=== PATIENT | female | born 1960 | race Caucasian/White ===

== ENCOUNTER 2020-12-10 06:56 | Observation (INO) | payer BC ==
[~2020-12-10] VITALS: Ht 160 cm; Wt 90.0 kg
[2020-12-10] VITALS (10 sets, daily range): BP systolic 128–178; BP diastolic 59–95
[~2020-12-10 06:56] MED LIST: GELATIN SPONGE SIZE 100. ONE; IBUP-1027 PO; IV RINGERS,LACTATED 1000ML 1,000 ML IV SCH; KETOROLAC 60 MG/2 ML VIAL. ONE; LIDOCAINE 2% PF 5 ML VIAL. ONE; LISI10TA16 PO; MIDAZOLAM HCL/PF 2 MG/2 ML VIAL. ONE; MORPHINE SULFATE 2 MG/ML INJ. IVP PRN; MULT-445 PO; OXYC1TAB19 PO; PHENYLEPHRINE 10 MG/ML VIAL. ONE; PROCHLORPERAZINE 10 MG/2 ML VIAL. IVP PRN; PROPOFOL 10 MG/ML (20ML) VIAL. IV ONE; PROPOFOL 50 ML IV ONE; REMIFENTANIL 2 MG VIAL. IV ONE; ROCURONIUM 50 MG/5 ML VIAL. ONE; THROMBIN TOPICAL 20,000 UNIT SPRAY.SYRN KIT TP ONE; ceFAZolin SODIUM 1 GM in IV NORMAL SALINE 1000ML BAG 1,000 ML IRR ONE; fentaNYL PF VIAL 100 MCG/2 ML VIAL IVP PRN; fentaNYL PF VIAL 100 MCG/2 ML VIAL ONE
[2020-12-10] MEDS ORDERED: DEXAMETHASONE SOD PHOS 4 MG/ML VIAL ONE (07:24)
[2020-12-10] MEDS ORDERED: ONDANSETRON PF 4 MG/2 ML VIAL. ONE (07:24)
[2020-12-10] MEDS ORDERED: SEVOFLURANE > 120 MINUTES. IH ONE (07:24)
[2020-12-10] MEDS ORDERED: BUPIVACAINE-EPI 0.5%-1:200000 MPF 30 ML VIAL. INJ ONE (07:30)
[2020-12-10] MEDS ORDERED: BUPIVACAINE-EPI 0.5% 30 ML VIAL KIT. INJ ONE (07:45)
[2020-12-10] MEDS ORDERED: PROPOFOL 50 ML IV ONE (07:46)
--- NOTE | 2020-12-10 08:02 | PREOP HP ---
DATE OF SERVICE: 12/10/2020 HISTORY OF PRESENT ILLNESS: The patient was seen in the office. She is a pleasant 60-year-old who is having problems with her back pain and pain that radiates to her left leg. Most of the pain is in the left leg. The pain is in the posterolateral thigh and leg. She notes pain and numbness sensation in that distribution. The problem started in 06/2020. She said she was slowly improving and fell in October and became worse again. The pain was 10/10 in June and is now 4/10. Sitting aggravates her pain. Standing helps. She takes ibuprofen. She did undergo steroid injection which helped for about 2 months. She had a second epidural steroid injection recently which did only helped her slightly. She has done physical therapy since June which she says is helping with her back pain. MEDICATIONS: Ibuprofen, lisinopril. PAST MEDICAL HISTORY: Hypertension. PAST SURGICAL HISTORY: Hysterectomy, tubal ligation. FAMILY HISTORY: Diabetes, hypertension, heart disease. SOCIAL HISTORY: . Smokes 1 pack per day for 40 years. Employed as a teacher aide. ALLERGIES: LATEX. REVIEW OF SYSTEMS: A 12-point review of systems was performed and is noncontributory except that mentioned above. PHYSICAL EXAMINATION: GENERAL APPEARANCE: Alert, pleasant, and in no acute distress. HEENT: Head is normocephalic, atraumatic. SKIN: Warm and dry. MUSCULOSKELETAL: Lumbar paraspinal muscle bulk is normal, restricted range of motion of the lumbar spine, [id number] tenderness of the lower lumbar spine with palpation, normal range of motion of the lower extremities bilaterally. EXTREMITIES: No clubbing, cyanosis or edema. NEUROLOGIC: Alert and oriented x 3. Strength is 5/5 in the bilateral lower extremities except 4+/5 in the left dorsiflexion, sensory was intact to light touch in the bilateral lower extremities except for decreased lateral aspect of her left foot. Reflexes were 2+ and symmetric in the lower extremities bilaterally, negative straight leg raising, normal gait. IMAGING: I reviewed her lumbar MRI scan. She has moderate stenosis at L3-L4. At L4-L5, there is severe left lateral recess and foraminal narrowing. This is due both to disk bulging as well as marked bone and ligament hypertrophy. ASSESSMENT AND PLAN: I do not believe she is symptomatic related to the stenosis at L3-L4. At L4-L5, she has marked lumbar radiculopathy with weakness. I recommended microdecompressive surgery at this level. I spoke with her about the surgery and the risk and the expected postoperative course. She understands. She would like to go ahead. DAREK DR: Mohit TID: [id number] MTDJoy
[2020-12-10] MEDS ORDERED: HYDROmorphone 2 MG/ML VIAL ONE ×2 (08:42→11:11)
[2020-12-10] MEDS ORDERED: NEOSTIGMINE METHYLSULFATE 5 MG/5 ML SYRINGE. ONE (08:45)
[2020-12-10] MEDS: HYDROmorphone 2 MG/ML VIAL IVP PRN ×3 (11:14→12:04)
--- NOTE | 2020-12-10 11:14 | OP ---
DATE OF SURGERY: 12/10/2020 PREOPERATIVE DIAGNOSES: Herniated lumbar disc and lateral recess stenosis, L4-5, left. POSTOPERATIVE DIAGNOSES: Herniated lumbar disc and lateral recess stenosis, L4-5, left. OPERATIONS PERFORMED: Hemilaminotomy with microdecompression and microdiscectomy, L4-5, left. The operation was done with EMG monitoring, SSEP monitoring, fluoroscopy, microscopic dissection. SPECIMEN: Disc and decompression. SURGEON: Teodoro Green M.D. HOUSEHOLD COOK: ALLYN Bird, assisted with the surgery. She assisted with the exposure, the microdiscectomy, microdecompression as well as the closure. OPERATIVE INDICATIONS: The patient is a pleasant 60-year-old who developed intractable back and left leg pain. On imaging studies, she had a combination of hypertrophic ligament and facets as well as significant disc bulging and I recommended lumbar microsurgery at this level. I spoke about the surgery, the risks, the technique and expected postoperative course, and she wished me to go ahead. DESCRIPTION OF PROCEDURE: Following general endotracheal anesthesia, the patient was positioned prone on the Nagi table. Lumbar region prepped and draped in the standard fashion. RHEA hose and AV impulse boots were applied for DVT prophylaxis. The microscope was draped, fluoroscopy was draped and brought into the field. Monitoring was established. Ancef 2 grams given less than 1 hour prior to initiation of surgery. Using fluoroscopic guidance, an incision was made extending from mid L4 to mid L5, I dissected down through skin and subcutaneous tissue, placed a micro disk retractor, brought in the microscope confirming my position fluoroscopically and through the microscope, I burred down a generous hemilaminotomy. I then trimmed away thickened ligamentum flavum, exposing the dura and I did perform a generous partial foraminotomy. I retracted the root medially after removing the thickened ligamentum and there was significant disc bulging and I held the nerve medially with a micro nerve root retractor, incised the annulus and performed discectomy with pituitary rongeurs. As I worked, the entire region became very well decompressed. I explored carefully. Hemostasis was excellent. The root was very well decompressed. I irrigated copiously with antibiotic solution. I then removed the retractor, obtained hemostasis in the muscle, irrigated again and then I closed the wound in layers with absorbable suture and skin was closed with 4-0 subcuticular stitch. I was quite pleased with the surgery. MARIA GUADALUPE DR: Dale TID: [id number] MTDJoy
[2020-12-10] MEDS ORDERED: NALOXONE 0.4 MG/ML VIAL. IV PRN (11:30)
[2020-12-10] MEDS ORDERED: diphenhydrAMINE HCL 25 MG CAPSULE PO PRN (11:30)
[2020-12-10] MEDS ORDERED: MAGNESIUM HYDROXIDE 2,400 MG/30 ML ORAL.SUSP. PO PRN (11:30)
[2020-12-10] MEDS ORDERED: 0.9 % SODIUM CHLORIDE 10 ML DISP.SYRIN. IV PRN (11:30)
[2020-12-10] MEDS ORDERED: MAG HYDROX/ALUMINUM HYD/SIMETH 30 ML ORAL.SUSP PO PRN (11:30)
[2020-12-10] MEDS ORDERED: CALCIUM CARBONATE 500 MG TAB.CHEW PO PRN (11:30)
[2020-12-10] MEDS ORDERED: METHOCARBAMOL 750 MG TABLET PO PRN (11:30)
[2020-12-10] MEDS ORDERED: ACETAMINOPHEN 325 MG TABLET. PO PRN (11:30)
[2020-12-10] MEDS: POTASSIUM CL 20MEQ D5-0.45NACL 1,000 ML IV SCH (12:30)
[2020-12-10] MEDS: DOCUSATE SODIUM 100 MG CAPSULE. PO SCH (19:45)
[2020-12-11] MEDS: oxyCODONE/APAP 7.5/325 1 TAB TABLET PO PRN ×2 (01:02→08:18)
[2020-12-11] MEDS: POTASSIUM CL 20MEQ D5-0.45NACL 1,000 ML IV SCH (01:50)
[2020-12-11 03:08] VITALS: BP 103/53
[2020-12-11 07:00] VITALS: BP 124/96
[2020-12-11] MEDS: DOCUSATE SODIUM 100 MG CAPSULE. PO SCH (08:18)
[2020-12-11] MEDS ORDERED: DOCU-109 PO (09:47)
[2020-12-11] MEDS ORDERED: METH-562 PO (09:47)
--- NOTE | 2020-12-11 09:48 | DISCH ---
DISCHARGE INSTRUCTIONS Condition on Discharge Condition on Discharge: Stable Activity After Discharge Activity Instructions for Disc: Activity as tolerated, Avoid exertion Other activity instructions: no driving for a week Bathing Instructions: Shower-keep dressing dry Lifting Instructions after Dis: No heavy lifting, No pulling or pushing, Do not lift >10 pounds Diet after Discharge Additional Diet Restrictions: resume home diet Wound Incision Care Wound/Incision Care: Ice to area for comfort Other wound/incision instructi: may remove dressing in 48 hours if dry, no soaking Contacting the DRJojo after DC Call your doctor for: Concerns you may have Follow-Up Follow up with: Dr. Corley's nurse in 2 weeks [phone] JEAN CLAUDE CORLEY MD Dec 11, 2020 09:48
--- NOTE | 2020-12-11 10:52 | NUR ---
Patient given discharge instructions and information on follow up care. IV removed by Andriy MONIQUE with no complications and patient was transported to vehicle with family member by Meagan MONIQUE
--- NOTE | 2020-12-11 15:22 | PATHOLOGY ---
[facility] Accession Number: [id number] . 01 Material submitted: . vertebral column - LUMBAR DISC AND DECOMPRESSION . 01 Clinical history: . LUMBAR HERNIATED DISC STENOSIS WITH RADICULOPATHY LUMBAR L4-5 MICRODECOMPRESSION . 02 Diagnosis: Segments of fibrocartilaginous tissue and bone, lumbar disc and decompression: - Degenerative changes of fibrocartilaginous tissue. (JPM:ritu; 12/11/2020) MBR 12/11/2020 1414 Local . 02 Comment: There is no evidence of an acute inflammatory process or malignancy. (JPM:ritu; 12/11/2020) . 02 Electronically signed: . Charbel Amador MD, Pathologist NPI- [id number] . 01 Gross description: . The specimen is received in formalin, labeled "Saeed, Brie, lumbar disc and decompression". Received are multiple segments of pale matson to pink-matson fibrous tissue admixed with fragments of gritty bone measuring 3.5 x 3.0 x 1.0 cm in aggregate dimensions. The specimen is submitted representatively in cassette A1, following light decalcification. ([facility]; 12/10/2020) NRI/NRI 12/10/20202034 Local . 02 Pathologist provided ICD-10: M51.36 . 02 CPT . 858187, 824736 Specimen Comment: A courtesy copy of this report has been sent to [phone], [phone] Specimen Comment: 219 Specimen Comment: Report sent to / DR LEES Specimen Comment: A duplicate report has been generated due to demographic updates. Performed at: [address], [place], [place] [id number] MD Leonard Odonnell MD Phone: [phone] Performed at: [address] [id number] MD Charbel Amador MD Phone: [phone]
== END 2020-12-11 10:40 | disposition home or self-care (01) ==
LOC: SURG 06:56 → 4 NORTH 11:21
PROVIDERS: ADMIT Neurological Surgery; ATTEND Neurological Surgery
DX: M48.061 Spinal stenosis, lumbar region without neurogenic claudication (principal); M51.26 Other intervertebral disc displacement, lumbar region; I10 Essential (primary) hypertension; Z87.891 Personal history of nicotine dependence; Z90.710 Acquired absence of both cervix and uterus; Z91.81 History of falling; Z98.51 Tubal ligation status
CPT/HCPCS: 63030; 97116; 97162; 97530; A4213; A4364; A4930; A6254; A6258; G0378; G0379; J0690; J1100; J1170; J1885; J2370; J2405; J2704; J2710; J3010; J7030; 76000; 88304; 88311; A4222; A4657; J2250